=== PATIENT | female | born 1955 | race Caucasian/White ===

== ENCOUNTER 2018-04-27 15:17 | Emergency (ER) | payer MEDICAID ==
[~2018-04-27] VITALS: Ht 154.9 cm; Wt 71.2 kg
[~2018-04-27 15:17] MED LIST: CIPRO750 MG PO; HYDROCHLOROTHIA25 MG PO; ZESTRIL20 MG PO
[2018-04-27 15:26] VITALS: Ht 154.9 cm; Wt 71.2 kg
[2018-04-27 16:27] VITALS: BP 139/68
== END 2018-04-27 16:27 | disposition home or self-care (01) ==
LOC: ED 15:17
DX: M79.645 Pain in left finger(s) (principal); R20.2 Paresthesia of skin; I10 Essential (primary) hypertension; Z76.0 Encounter for issue of repeat prescription